=== PATIENT | female | born 1995 | race American Indian/Alaskan Native ===

== ENCOUNTER 2016-04-26 16:51 | Outpatient (CLI) | payer MEDICAID ==
[2016-04-26 19:17] LABS: Bilirubin,Urine NEG (Negative); Blood,Urine NEG (Negative); Ketones,Urine NEG (Negative); Leukocyte Esterase,Urine MOD (Negative); Mucus,Urine FEW /HPF; Nitrite,Urine NEG (Negative); Urobilinogen,Urine < 2.0 mg/dL (<2.0)
[2016-04-26 20:04] LABS: Hemoglobin 11.8 gm/dl (10.1-14.3); Mean Corpuscular HGB Conc 34 % (30-34); Mean Corpuscular Hemoglobin 30 pg (28-32); Mean Corpuscular Volume 90 fl (79-97); Platelet Count 150 K/mm3 (140-440); Red Blood Count 3.89 M/mm3 (3.65-5.03); Red Cell Distribution Width 13.6 % (13.2-15.2); White Blood Count 9.4 K/mm3 (4.5-11.0)
[2016-04-26 20:18] LABS: Lactate Dehydrogenase 244 units/L (91-180); Uric Acid 5.1 mg/dL (3.5-7.6)
[2016-04-26 20:33] LABS: Alanine Aminotransferase < 5 units/L (7-56)
[2016-04-26 20:39] VITALS: BP 133/94
== END 2016-04-26 20:45 | disposition home or self-care (01) ==
LOC: TRG 16:51
PROVIDERS: ATTEND Obstetrics & Gynecology
DX: O77.9 Labor and delivery complicated by fetal stress, unspecified (principal); O47.03 False labor before 37 completed weeks of gestation, third trimester; Z3A.36 36 weeks gestation of pregnancy
CPT/HCPCS: 36415; 59025; 81001; 82565; 83615; 84450; 84460; 84550; 85027

== ENCOUNTER 2016-04-30 11:41 | Outpatient (CLI) | payer MEDICAID ==
[2016-04-30 12:33] VITALS: BP 133/81
== END 2016-04-30 12:50 | disposition home or self-care (01) ==
LOC: TRG 11:41
PROVIDERS: ATTEND Obstetrics & Gynecology
DX: O77.9 Labor and delivery complicated by fetal stress, unspecified (principal); O47.1 False labor at or after 37 completed weeks of gestation; Z3A.37 37 weeks gestation of pregnancy
CPT/HCPCS: 59025

== ENCOUNTER 2016-05-01 11:15 | Inpatient (IN) | payer MEDICAID ==
[2016-05-01] MEDS ORDERED: PITOCin/NS 20 UNIT/1000ML DRIP 1,000 ML IV ONE (11:21)
--- NOTE | 2016-05-01 11:50 | History and Physical Report ---
History of Present Illness Date of examination: 05/01/16 Date of admission: 05/01/16 11:15 History of present illness: 20 yo LMP EDC 05/21/16@ 37.1 weeks gestation presented by EMS after home delivery @ 1040 this morning. SROM at time of delivery. Patient and family voiced seen in triage 04/30/16 in am and discharged home after observation and SVE of 1cm. Patient voiced contractions became severe this am and did not call or return to hospital secondary to fear of being discharged home again. First trimester entry into care at 10 weeks gestation. course complicated by asthma with Ventolin prn, check pain with negative community development aide evaluation and limited anatomy views of fetus on U/s scan. She is GBS negative. Past History Past Medical History: asthma, other (chest pain) Past Surgical History: no surgical history Family/Genetic History: hypertension, stroke, cancer Social history: no significant social history, single - Obstetrical History Expected Date of Delivery: 05/21/16 Actual Gestation: 37 Week(s) 1 Day(s) : 2 Para: 2 Number of Living Children: 2 Medications and Allergies Allergies Allergy/AdvReac Type Severity Reaction Status Date / Time No Known Allergies Allergy Verified 05/01/16 11:51 Home Medications Medication Instructions Recorded Confirmed Last Taken Type No Known Home Medications [No 05/01/16 05/01/16 Unknown History Reported Home Medications] Review of Systems All systems: negative Genitourinary: normal appearance, vaginal bleeding (small bleeding), no leakage of fluid, no genital sores, no contractions - Vital Signs Vital signs: Vital Signs Pulse BP 80 127/76 05/01/16 11:28 05/01/16 11:28 Temp Pulse Resp BP Pulse Ox 77 150/87 05/01/16 11:44 05/01/16 11:44 - Physical Exam Breasts: Positive: deferred Abdomen: Positive: normal appearance, soft, other (ff 2 below U, ML) Genitourinary (Female): Positive: normal external genitalia, normal perenium Vagina: Positive: normal moisture Results All other labs normal. Assessment and Plan A: IUP at 37 weeks gestation at home GBS negative P: Routine orders Monitor BP's with PIH panel prn
--- NOTE | 2016-05-01 11:55 | Procedure Note ---
OB Delivery Note - Delivery Date of Delivery: 05/01/16 (5-14oz female @ 1040) Surgeon: AUDREY NAJERA - Vaginal Delivery presentation: vertex Intrapartum events: other(please specify) (home delivery) Delivery induction: none Delivery monitor: none Route of delivery: Delivery placenta: spontaneous Delivery cord: 3 umbilical vessels Episiotomy: none Delivery laceration: none Anesthesia: none - Infant A Gender: Female (Patient received via EMS after home delivery by relative @ 1040 this am. Spont. placenta via EMS attendent. Perineal viewed no laceration , small lochia with passage of one clot. Pitocin infusing. Patient is GBS negative and O+, will attempt cord blood collection. Mild elevated BP, denies PIH S&S. Will collect panel if BP remain elevated.)
[2016-05-01] MEDS ORDERED: SODIUM CHLORIDE FLUSH SYRINGE 10 ML IV NR ×2 (12:00→21:00)
[2016-05-01] MEDS ORDERED: TUCKS PAD TP PRN ×2 (12:00→20:04)
[2016-05-01] MEDS ORDERED: PHENERGAN PR PRN ×2 (12:00→20:04)
[2016-05-01] MEDS ORDERED: DERMOPLAST TP PRN ×2 (12:00→20:04)
[2016-05-01] MEDS ORDERED: PITOCin/NS 20 UNIT/1000ML DRIP 1,000 ML IV SCH (12:00)
[2016-05-01] MEDS ORDERED: TYLENOL PO PRN ×2 (12:00→20:04)
[2016-05-01] MEDS ORDERED: ZOFRAN IV PRN ×2 (12:00→20:04)
[2016-05-01] MEDS ORDERED: DULCOLAX PR PRN ×2 (12:00→20:04)
[2016-05-01] MEDS ORDERED: LANSINOH TP PRN ×2 (12:00→20:04)
[2016-05-01] MEDS ORDERED: BENADRYL PO PRN ×2 (12:00→20:04)
[2016-05-01] MEDS ORDERED: MILK OF MAGNESIA PO PRN ×2 (12:00→20:04)
[2016-05-01] MEDS ORDERED: PHENERGAN PO PRN ×2 (12:00→20:04)
[2016-05-01] MEDS ORDERED: MOTRIN PO SCH (12:00)
[2016-05-01] MEDS ORDERED: NORCO 5/325 PO PRN (12:00)
[2016-05-01 13:27] LABS: Hemoglobin 12.1 gm/dl (10.1-14.3); Mean Corpuscular HGB Conc 33 % (30-34); Mean Corpuscular Hemoglobin 30 pg (28-32); Mean Corpuscular Volume 90 fl (79-97); Platelet Count 169 K/mm3 (140-440); Red Cell Distribution Width 13.8 % (13.2-15.2); White Blood Count 13.6 K/mm3 (4.5-11.0)
[2016-05-01] MEDS ORDERED: MAGNESIUM SULFATE 4GM/100ML 100 ML IV ONE (13:30)
[2016-05-01 13:41] LABS: Alanine Aminotransferase 7 units/L (7-56)
[2016-05-01] MEDS ORDERED: EMLA TP ONE (13:50)
[2016-05-01 13:58] LABS: Lactate Dehydrogenase 220 units/L (91-180); Uric Acid 4.7 mg/dL (3.5-7.6)
[2016-05-01] MEDS: MAGNESIUM SULFATE 40GM/1000ML 1,000 ML IV SCH (14:27)
[2016-05-01] MEDS: LACTATED RINGERS 1,000 ML IV SCH (15:55)
[2016-05-01 16:18] LABS: Bilirubin,Urine NEG (Negative); Blood,Urine NEG (Negative); Ketones,Urine 20 mg/dL (Negative); Leukocyte Esterase,Urine NEG (Negative); Mucus,Urine 3+ /HPF; Nitrite,Urine NEG (Negative); Urobilinogen,Urine < 2.0 mg/dL (<2.0)
[2016-05-01 16:21] LABS: Protein,Urine >500 mg/dL (Negative)
[2016-05-01] MEDS: MOTRIN PO SCH (22:01)
[2016-05-01] MEDS: NORMODYNE PO SCH (22:29)
[2016-05-02] MEDS: LACTATED RINGERS 1,000 ML IV SCH (03:45)
[2016-05-02] MEDS: MOTRIN PO SCH ×4 (06:00→18:05)
[2016-05-02 08:32] LABS: Hematocrit 32.5 % (30.3-42.9); Hemoglobin 10.6 gm/dl (10.1-14.3); Mean Corpuscular HGB Conc 33 % (30-34); Mean Corpuscular Hemoglobin 30 pg (28-32); Mean Corpuscular Volume 92 fl (79-97); Platelet Count 158 K/mm3 (140-440); Red Blood Count 3.56 M/mm3 (3.65-5.03); Red Cell Distribution Width 13.9 % (13.2-15.2); White Blood Count 11.5 K/mm3 (4.5-11.0)
[2016-05-02 08:51] LABS: Alanine Aminotransferase 8 units/L (7-56); Lactate Dehydrogenase 189 units/L (91-180); Uric Acid 4.9 mg/dL (3.5-7.6)
[2016-05-02] MEDS ORDERED: PRENATAL VITAMIN PO SCH (10:00)
[2016-05-02] MEDS: NORMODYNE PO SCH (10:15)
[2016-05-02] MEDS: MAGNESIUM SULFATE 40GM/1000ML 1,000 ML IV SCH (10:15)
[2016-05-02] MEDS ORDERED: BOOSTRIX IM ONE (12:00)
[2016-05-02] MEDS ORDERED: M-M-R II VACCINE SUB-Q ONE (12:00)
[2016-05-02] MEDS: PRENATAL VITAMIN PO SCH (12:05)
--- NOTE | 2016-05-02 12:57 | Progress Note ---
Assessment and Plan O: Magnesium Sulfate continues @ 2 gr/hr Pina Present and Patent > 30 cc/digital proofing and platemaker 127/72-152/80 PIH Labs: WNL, Urine protein >500 A: Stable PP Day 1 PP Preeclampsia P: D/c Magnesium as ordered. Subjective - Subjective Date of service: 05/02/16 Interval history: 20 yo LMP EDC 05/21/16@ 37.1 weeks gestation presented by EMS after home delivery @ 1040 this morning. SROM at time of delivery. Patient and family voiced seen in triage 04/30/16 in am and discharged home after observation and SVE of 1cm. Patient voiced contractions became severe this am and did not call or return to hospital secondary to fear of being discharged home again. First trimester entry into care at 10 weeks gestation. course complicated by asthma with Ventolin prn, check pain with negative motor vehicle license clerk evaluation and limited anatomy views of fetus on U/s scan. She is GBS negative. Patient reports: appetite normal, voiding normally, pain well controlled, flatus , ambulating normally, other (c/o right frontal CHURCH, denies blurred vision or epigastric pain) : doing well Objective - Vital Signs Latest vital signs: Vital Signs Temp Pulse Pulse Resp BP BP Pulse Ox 05/02/16 10:15 76 152/80 05/02/16 10:00 76 20 152/80 05/02/16 08:02 98.1 F 80 20 132/72 05/02/16 06:00 98.1 F 111 H 20 127/83 05/02/16 04:30 98.1 F 96 H 18 122/73 05/02/16 02:40 98 F 71 18 121/69 05/02/16 00:00 98.1 F 80 20 120/69 05/01/16 22:29 84 136/83 05/01/16 22:20 98.1 F 84 20 136/83 05/01/16 20:44 98.4 F 89 20 137/69 05/01/16 18:22 85 20 142/70 05/01/16 16:26 98.5 F 76 20 150/80 05/01/16 15:00 98.3 F 83 18 141/89 05/01/16 14:40 70 137/86 05/01/16 14:36 83 98 05/01/16 14:31 79 98 05/01/16 14:28 100 H 137/83 05/01/16 14:26 79 97 05/01/16 14:22 81 134/84 05/01/16 14:21 78 98 05/01/16 14:16 77 97 05/01/16 14:13 93 H 132/82 05/01/16 14:11 77 98 05/01/16 14:07 78 134/92 05/01/16 14:06 73 98 05/01/16 14:01 74 98 05/01/16 13:58 76 142/92 05/01/16 13:56 72 99 05/01/16 13:51 80 98 05/01/16 13:46 71 98 05/01/16 13:43 75 143/90 05/01/16 13:41 66 98 05/01/16 13:36 70 99 05/01/16 13:31 75 99 05/01/16 13:29 72 142/89 05/01/16 13:26 61 99 05/01/16 13:21 66 99 05/01/16 13:16 70 99 05/01/16 13:14 184 H 197/142 05/01/16 13:11 76 98 05/01/16 13:06 68 98 05/01/16 13:01 71 98 05/01/16 12:58 73 143/92 05/01/16 12:56 73 99 Intake and Output 05/01/16 05/02/16 05/02/16 22:59 06:59 14:59 Intake Total 1235 1055 745 Output Total 1999 900 550 Balance -765 155 195 Intake: IV 875 875 625 Magnesium Sulfate 40Gm/ 350 350 200 1000ML 1,000 ml @ 2 GM/HR 50 mls/hr IV DIRECT SHYANN Rx#:[id number] Lactated Ringers 1,000 ml 525 525 300 @ 75 mls/hr IV DIRECT SHYANN Rx#:[id number] Left Hand 125 Oral 240 120 Intake, Free Water 120 180 Output: Urine 1999 900 550 Indwelling Catheter 1999 900 550 Other: Total, Intake Amount 240 120 Total, Output Amount 600 900 550 - Exam Breasts: Present: deferred Lungs: Present: Normal air movement Abdomen: Present: normal appearance, soft. Absent: distention, tenderness Vulva: both: normal, ulceration, condyloma, pigmented lesion, lichenification, atrophy, laceration/episiotomy Uterus: Present: normal, firm Extremities: Present: normal - Labs Labs: Abnormal lab results 05/01/16 05/01/16 05/01/16 Range/Units 13:00 13:00 22:50 WBC 13.6 H (4.5-11.0) K/mm3 RBC (3.65-5.03) M/mm3 Creatinine 0.3 L (0.7-1.2) mg/dL Magnesium 3.8 H (1.7-2.3) mg/dL Lactate Dehydrogenase 220 H (91-180) units/L 05/02/16 05/02/16 Range/Units 08:06 08:06 WBC 11.5 H (4.5-11.0) K/mm3 RBC 3.56 L (3.65-5.03) M/mm3 Creatinine 0.4 L (0.7-1.2) mg/dL Magnesium (1.7-2.3) mg/dL Lactate Dehydrogenase 189 H (91-180) units/L
[2016-05-03] MEDS: NORMODYNE PO SCH ×2 (00:30→11:36)
[2016-05-03] MEDS: MOTRIN PO SCH ×2 (00:30→06:35)
[2016-05-03] MEDS ORDERED: BOOSTRIX IM ONE (08:00)
--- NOTE | 2016-05-03 08:24 | Progress Note ---
Assessment and Plan PPD#2 s/p bottle feeding HTN- on labetolol Rx written bleeding decreased O+ no rhogam indicated f/u in 1 week for BP check girl anemia- iron continued d/c home today Subjective - Subjective Date of service: 05/03/16 Principal diagnosis: T Patient reports: appetite normal, voiding normally, pain well controlled, flatus , ambulating normally [place]: doing well, bottle feeding Objective - Vital Signs Latest vital signs: Vital Signs Temp Pulse Pulse Resp BP BP 05/03/16 04:00 98.6 F 74 20 111/66 05/03/16 00:30 75 138/79 05/03/16 00:00 98.1 F 75 20 138/79 05/02/16 22:10 71 117/59 05/02/16 16:35 98.7 F 80 20 119/69 05/02/16 12:02 98.5 F 80 20 114/63 05/02/16 10:15 76 152/80 05/02/16 10:00 76 20 152/80 Intake and Output 05/02/16 05/03/16 05/03/16 22:59 06:59 14:59 Intake Total 200 240 Balance 200 240 Intake: Oral 200 240 Other: Total, Intake Amount 200 240 # Voids Void 1 1 - Exam Breasts: Present: normal Cardiovascular: Present: Regular rate, Normal S1, Normal S2, No murmurs Lungs: Present: Clear to auscultation, Normal air movement Abdomen: Present: normal appearance, soft, normal bowel sounds. Absent: distention, tenderness Vulva: both: normal Uterus: Present: normal, firm. Absent: bogginess, tenderness Extremities: Present: normal Deep Tendon Reflex Grade: Normal +2 - Labs Labs: Abnormal lab results 05/02/16 05/02/16 Range/Units 08:06 08:06 WBC 11.5 H (4.5-11.0) K/mm3 RBC 3.56 L (3.65-5.03) M/mm3 Creatinine 0.4 L (0.7-1.2) mg/dL Lactate Dehydrogenase 189 H (91-180) units/L
--- NOTE | 2016-05-03 08:26 | Discharge Summary ---
Providers - Providers Date of Admission: 05/01/16 11:15 Date of discharge: 05/03/16 Attending physician: Jody Farris MD Primary care physician: NATALIIA YANES Hospitalization Reason for admission: IUP at term (Delivered at home ) Delivery: Episiotomy: none Laceration: none Other procedures: none complications: other (PIH/HTN s/p Mag ) Discharge diagnosis: IUP at term delivered, other (HTN on labetolol 100 mg BID) baby: female Condition at discharge: Good Disposition: DISCHARGED TO HOME OR SELFCARE Plan - Provider Discharge Summary Activity: routine, no sex for 6 weeks Diet: routine Instructions: routine Additional instructions: [] Smoking cessation referral if applicable(refer to patient education folder for contact #) [] Refer to [facility]'s [facility] Center Booklet Call your doctor immediately for: * Fever > 100.5 * Heavy vaginal bleeding ( >1 pad per hour) * Severe persistent headache * Shortness of breath * Reddened, hot, painful area to leg or breast * Drainage or odor from incision. * Keep incision clean and dry at all times and follow doctor's instructions regarding bathing/showering
[2016-05-03] MEDS: PRENATAL VITAMIN PO SCH (11:38)
[2016-05-03 15:20] VITALS: BP 134/82
== END 2016-05-03 14:00 | disposition home or self-care (01) | DRG 774 ==
LOC: LD 11:15 → OB 14:57
PROVIDERS: ADMIT Obstetrics & Gynecology; ATTEND Obstetrics & Gynecology
DX: Z39.0 Encounter for care and examination of mother immediately after delivery (principal); Z37.0 Single live birth; O11.5 Pre-existing hypertension with pre-eclampsia, complicating the puerperium
CPT/HCPCS: 36415; 81001; 82565; 83615; 83735; 84450; 84460; 84550; 85027; 86850; 86900; 86901; 88307; 90471; J2590; J3475; J7120

== ENCOUNTER 2019-12-16 18:51 | Emergency (ER) | payer OTHER ==
--- NOTE | 2019-12-16 19:36 | Event Note ---
ED Screening Note Date of service: 12/16/19 Time: 19:34 ED Screening Note: Heavy vaginal bleeding that started 3 days ago. She had a baby 6 weeks ago. Mild intermittent lower abdominal cramping. GENERAL APPEARANCE: Well-developed, well-nourished, no acute distress HEENT: Normocephalic and atraumatic. No scleral icterus. Pupils are equal, round, and reactive to light and accommodation. No conjunctival injection is noted. Oropharynx is clear. Mouth revealed good dentition, no lesions. Tympanic membranes are clear. NECK: Supple. Trachea is midline. No evidence of thyroid enlargement. No lymphadenopathy or tenderness. CHEST: Symmetric. Nontender to palpation. LUNGS: Breath sounds are equal and clear bilaterally. No wheezes, rhonchi, or rales. HEART: Regular rate and rhythm with normal S1 and S2. No murmurs, gallops, or rubs. BREASTS: Symmetrical. No skin or nipple retractions. No nipple discharges or masses. ABDOMEN: Soft, flat, and benign. No mass, tenderness, guarding, or rebound. No organomegaly or hernia. Bowel sounds are present. No CVA tenderness or flank mass. GENITOURINARY: Deferred RECTAL: Deferred EXTREMITIES: No cyanosis, clubbing, or edema. No lower extreme edema, negative Homans sign bilaterally NEUROLOGIC: No focal sensory or motor deficits are noted. Gait is normal. Cranial nerves II through XII are intact. Deep tendon reflexes are intact. PSYCHIATRIC: The patient is awake, alert, and oriented x3. Recent and remote memory is intact. Appropriate mood and affect. SKIN: Warm, dry, and well perfused. Good turgor. No lesions, nodules or rashes are noted. No onychomycosis. LYMPHATICS: No cervical, axillary, or groin adenopathy is noted. This initial assessment/diagnostic orders/clinical plan/treatment(s) is/are subject to change based on patients health status, clinical progression and re- assessment by fellow clinical providers in the ED. Further treatment and workup at subsequent clinical providers discretion. Patient/guardian urged not to elope from the ED as their condition may be serious if not clinically assessed and managed. Initial orders include: UA, Urine preg
--- NOTE | 2019-12-16 20:18 | Emergency Department Report ---
ED Female HPI - General Chief complaint: Vaginal Bleeding Stated complaint: HEAVY BLEEDING Time Seen by Provider: 12/16/19 20:13 Source: patient Mode of arrival: Ambulatory Limitations: No Limitations - History of Present Illness Initial comments: Patient 24-year-old -[place] female who is 6 weeks . Patient presents today for vaginal bleeding. pt states hx of preeclampsia,controlled with po medications, states resolved since delivery. This is first cycle since delivery. Patient has follow-up with ELA TEACHER in 1 day. States she came today because of bleeding. She want to make sure things okay. Patient states she thinks now that she will do further SENIOR COMMISSIONS ANALYST follow-up. There is no nausea /vomiting ,no lightheadedness, no dizziness, no chest pain, no shortness of breath ,no back pain, there is no numbness or tingling, no fever , or chills, . There is mild abdominal cramping as described by patient. Similar to her normal cycle. She advises at this time that she declines evaluation including blood and urine. Patient has spoken with ELA TEACHER and will follow-up with same tomorrow. Patient given strict instructions return to ED should symptoms worsen. Complaint: vaginal bleeding - Related Data Previous Rx's Medication Instructions Recorded Last Taken Type Ibuprofen [Motrin] 600 mg PO Q6H PRN #60 tablet 11/06/19 Unknown Rx Allergies Allergy/AdvReac Type Severity Reaction Status Date / Time No Known Allergies Allergy Verified 05/01/16 11:51 ED Review of Systems ROS: Stated complaint: HEAVY BLEEDING Other details as noted in HPI Constitutional: denies: chills, fever Eyes: denies: eye pain, eye discharge, vision change ENT: denies: ear pain, throat pain Respiratory: denies: cough, shortness of breath, wheezing Cardiovascular: denies: chest pain, palpitations Endocrine: no symptoms reported Gastrointestinal: abdominal pain (bilat lower abd cramping ). denies: nausea, diarrhea Genitourinary: abnormal menses. denies: urgency, dysuria, discharge Musculoskeletal: denies: back pain, joint swelling, arthralgia Skin: denies: rash, lesions Neurological: denies: headache, weakness, paresthesias Psychiatric: as per HPI Hematological/Lymphatic: denies: easy bleeding, easy bruising ED Past Medical Hx - Past Medical History Hx Hypertension: Yes (preeclampsia) Hx Congestive Heart Failure: No Hx Diabetes: No Hx Deep Vein Thrombosis: No Hx Renal Disease: No Hx Sickle Cell Disease: No Hx Seizures: No Hx Asthma: Yes (last inhaler used in 11/2015) Hx COPD: No Hx HIV: No - Surgical History Past Surgical History?: No - Social History Smoking Status: Never Smoker Substance Use Type: None - Medications Home Medications: Home Medications Medication Instructions Recorded Confirmed Last Taken Type Ibuprofen [Motrin] 600 mg PO Q6H PRN #60 tablet 11/06/19 Unknown Rx ED Physical Exam - General Limitations: No Limitations General appearance: alert, in no apparent distress - Head Head exam: Present: atraumatic, normocephalic - Eye Eye exam: Present: normal appearance, PERRL, EOMI Pupils: Present: normal accommodation - ENT ENT exam: Present: mucous membranes moist - Neck Neck exam: Present: normal inspection, full ROM. Absent: tenderness - Respiratory Respiratory exam: Present: normal lung sounds bilaterally. Absent: respiratory distress, wheezes, stridor, chest wall tenderness - Cardiovascular Cardiovascular Exam: Present: regular rate, normal rhythm. Absent: systolic murmur, diastolic murmur, rubs, gallop - GI/Abdominal GI/Abdominal exam: Present: soft, normal bowel sounds. Absent: distended, tenderness, guarding, rebound, rigid, bruit, hernia - Rectal Rectal exam: Present: deferred - Extremities Exam Extremities exam: Present: normal inspection, full ROM, normal capillary refill. Absent: tenderness, pedal edema - Back Exam Back exam: Present: normal inspection, full ROM. Absent: tenderness, CVA tenderness (R), CVA tenderness (L), vertebral tenderness - Neurological Exam Neurological exam: Present: alert, oriented X3, CN II-XII intact, normal gait, reflexes normal - Expanded Neurological Exam Expanded Patient oriented to: Present: person, place Speech: Present: fluid speech Motor strength exam: RUE: 5, LUE: 5, RLE: 5, LLE: 5 Best Eye Response (Candy): (4) open spontaneously Best Motor Response (Candy): (6) obeys commands Best Verbal Response (Candy): (5) oriented Candy Total: 15 - Psychiatric Psychiatric exam: Present: normal affect - Skin Skin exam: Present: warm, dry, intact, normal color. Absent: rash ED Course Vital Signs 12/16/19 19:16 Temperature 98.3 F Pulse Rate 68 Respiratory 18 Rate Blood Pressure 162/87 O2 Sat by Pulse 100 Oximetry ED Medical Decision Making - Medical Decision Making pt is 6 week post , normal vaginal delivery , she has OBGYN follow up in 2 days, She advises at this time that she declines evaluation including blood , urine , or vaginal exam. Patient has spoken with ELA TEACHER and will follow-up with same tomorrow. Patient given strict instructions return to ED should symptoms worsen. pt appears well, nontoxic, well hydrate, well nourished, with nad , ambulatory with steady gait at this time. Pt again given direction to follow up with OBGYN Dr. Berrios in am. pt verbalized agreement and understanding of same. Critical care attestation.: If time is entered above; I have spent that time in minutes in the direct care of this critically ill patient, excluding procedure time. ED Disposition Clinical Impression: Dysmenorrhea Disposition: - TO HOME OR SELFCARE Is pt being admited?: No Does the pt Need Aspirin: No Condition: Stable Instructions: Dysmenorrhea (ED) Additional Instructions: Please see Dr. Saint Brown tomorrow. Please return to emergency department should symptoms worsen including shortness of breath, chest pain, nausea or vomiting, headache ,fever, or chills. Referrals: ANUEL BERRIOS MD [Staff Physician] - 24 Hours Forms: Work/School Release Form(ED) Time of Disposition: 20:28
[2019-12-16 20:31] VITALS: BP 140/93
== END 2019-12-16 20:34 | disposition home or self-care (01) ==
LOC: ED 18:51
DX: N94.6 Dysmenorrhea, unspecified (principal); I10 Essential (primary) hypertension; J45.909 Unspecified asthma, uncomplicated; Z79.899 Other long term (current) drug therapy
CPT/HCPCS: 99282